=== PATIENT | male | born 1940 | race Caucasian/White ===

== ENCOUNTER → 2020-04-26 | Outpatient (CLI) | payer MEDICARE, OTHER ==
[~2020-04-26] MED LIST: AMBIEN 5 MG TABL5 M1 PO; ASPIR-TRIN325 MG PO; COLACE 100 MG100 MG PO; FINASTERIDE5 MG PO; FLOMAX0.4 MG PO; GLUCOPHAGE500 MG PO; GLYBURIDE 2.52.5 MG PO; GLYBURIDE-METF1 EACH PO; HYDROCODON-ACE1 EAC7 PO; HYDROCODONE-AP1 EAC6 PO; KEFLEX500 MG PO; MILK OF MA2400 MG/10 PO; MINOCIN100 MG PO; NAPROSYN500 MG PO; NIASPAN ER 101000 M1 PO; OXYCODONE HCL5 M1 PO; PANTOPRAZOLE SO40 M1 PO; PHENERGAN 25 MG25 M1 PO; QUINAPRIL HCL40 MG PO; TRAMADOL 50 MG50 MG PO; XARELTO10 M1 PO; XARELTO10 MG PO; ZOCOR20 MG PO; ZPAK PO
== END ==
LOC: M.MRI 08:30
PROVIDERS: ATTEND Orthopaedic Surgery
DX: M51.37 Other intervertebral disc degeneration, lumbosacral region (principal); M51.16 Intervertebral disc disorders with radiculopathy, lumbar region; M48.07 Spinal stenosis, lumbosacral region